=== PATIENT | female | born 1935 | race Caucasian/White ===

== ENCOUNTER 2020-08-03 07:16 | Outpatient (REF) | payer MEDICARE, SELFPAY ==
[2020-08-03 09:35] LABS: Glucose Urine UA NEG (NEG); Leukocyte Esterase Urine NEG (NEG); Nitrite Urine NEG (NEG); Urine Blood TRACE (NEG); Urine Ketones NEG (NEG); Urine Protein NEG (NEG-TRACE)
[2020-08-03 09:36] LABS: Appearance Urine CLEAR; Color Urine YELLOW
[2020-08-03 09:44] LABS: Squamous Epithelial Cell Urine 1+ /LPF; WBC Urine 0 /HPF (0-4)
== END 2020-08-03 07:17 | disposition home or self-care (01) ==
LOC: HO.LAB 07:16
PROVIDERS: Visit Provider Internal Medicine
DX: R35.1 Nocturia (principal)
CPT/HCPCS: 81001

== ENCOUNTER 2021-07-12 08:38 | Outpatient (REF) | payer MEDICARE, SELFPAY ==
--- NOTE | ~2021-07-12 | MM_ITS ---
EXAMINATION: BONE DENSITOMETRY CLINICAL INDICATION: Osteoporosis. COMPARISON: Previous BD dated 03/17/2018 and baseline BD dated 07/07/2008. TECHNIQUE: Using a [employer] DXA System (software version: 13.1) manufactured by [employer], dual-energy x-ray absorptiometry was performed of the lumbar spine and left hip. The images are of good technical quality. Summary results are attached. FINDINGS: AP SPINE L2-L3 (excluding L1 and L4): The data of L1-L4 has been changed to exclude the L1 and L4 vertebral bodies, because degenerative changes at these levels may cause overestimation of lumbar spine density. Current: BMD 1.219 g/cm2, Z-score 2.2, T-score 0.2, normal, 2.1% increase from previous, 7.1% increase from baseline (<5% change is not significant). Prior: BMD 1.194 g/cm2. Baseline: BMD 1.138 g/cm2. LEFT FEMUR, NECK: Current: BMD 0.355 g/cm2, Z-score -2.4, T-score -4.9, osteoporosis. Prior: BMD 0.675 g/cm2. Baseline: BMD 0.669 g/cm2. LEFT FEMUR, TOTAL: Current: BMD 0.410 g/cm2, Z-score -2.4, T-score -4.7, osteoporosis, 40.5% decrease from previous, 40.9% decrease from baseline (<5% change is not significant). Prior: BMD 0.689 g/cm2. Baseline: BMD 0.694 g/cm2. IDENTIFIED RISK FACTORS: Menopause, glucocorticoids (chronic), height loss, history of fracture (adult), hyperthyroid, low calcium intake, osteoporosis, secondary osteoporosis. HISTORY OF FRACTURE: Wrist, ankle. MEDICATIONS: Calcium, vitamin D, bisphosphonate. MM/XR DEXA axial skeleton IMPRESSION: 1. DIAGNOSIS: Osteoporosis based on the lowest T-score value of -4.9 in the femoral neck applying World Health Organization criteria. 2. 10-YEAR FRACTURE RISK PREDICTION, FRAX: Major osteoporotic fracture (clinical spine, forearm, hip or shoulder) 72.3%. Hip fracture 54.6%. 3. Treatment Recommendations: NOF guidelines recommend consideration for treatment in postmenopausal women and men age 50 and older presenting with the following: -A hip or vertebral (clinical or morphometric) fracture. -T-score less than or equal to -2.5 at the femoral neck or spine after appropriate evaluation to exclude secondary causes. -Low bone mass at the hip or spine and a 10-year fracture probability by FRAX of greater than or equal to 3% for hip fracture or greater than or equal to 20% for major osteoporotic fracture based on the [place] adapted WHO algorithm. 4. Other Recommendations: All treatment decisions require clinical judgment and consideration of individual patient factors, including patient preferences, comorbidities, previous drug use, risk factors not captured in the FRAX model (e.g. frailty, falls, vitamin D deficiency, increased bone turnover, interval significant decline in bone density) and possible under or overestimation of fracture risk by FRAX. Additional medical evaluation for secondary cause of low bone mineral density may be appropriate. FUTURE SCAN RECOMMENDATION: People with diagnosed cases of osteoporosis or at high risk for fracture should have regular bone mineral density tests. For patients eligible for Medicare, routine testing is allowed once every 2 years. The testing frequency can be increased to one year for patients who have rapidly progressing disease, those who are receiving or discontinuing medical therapy to restore bone mass, or have additional risk factors.
== END 2021-07-12 08:39 | disposition home or self-care (01) ==
LOC: HO.MAMMO 08:38
PROVIDERS: Visit Provider Internal Medicine
DX: M81.0 Age-related osteoporosis without current pathological fracture (principal); Z78.0 Asymptomatic menopausal state
CPT/HCPCS: 77080

== ENCOUNTER 2023-07-16 13:38 | Outpatient (REF) | payer MEDICARE, SELFPAY ==
--- NOTE | ~2023-07-16 | MM_ITS ---
EXAMINATION: BONE DENSITOMETRY CLINICAL INDICATION: Osteoporosis. COMPARISON: Previous BD dated 07/12/2021 and baseline BD dated 07/07/2008. TECHNIQUE: Using a [employer] DXA System (software version: 13.1) manufactured by [employer], dual-energy x-ray absorptiometry was performed of the lumbar spine and left hip. The images are of good technical quality. Summary results are attached. FINDINGS: AP SPINE L1-L2 (excluding L3 and L4): The data of L1-L4 has been changed to exclude the L3 and L4 vertebral bodies, because degenerative sclerosis at these levels may cause overestimation of lumbar spine density. Current: BMD 1.250 g/cm2, Z-score 2.9, T-score 0.7, normal, 0.2% decrease from previous, 16.4% increase from baseline (<5% change is not significant). Prior: BMD 1.252 g/cm2. Baseline: BMD 1.074 g/cm2. LEFT FEMUR, NECK: Current: BMD 0.705 g/cm2, Z-score 0.2, T-score -2.4, osteopenia. Prior: BMD 0.355 g/cm2. Baseline: BMD 0.669 g/cm2. LEFT FEMUR, TOTAL: Current: BMD 0.712 g/cm2, Z-score 0.2, T-score -2.3, osteopenia, 73.7% increase from previous, 2.6% increase from baseline (<5% change is not significant). Prior: BMD 0.410 g/cm2. Baseline: BMD 0.694 g/cm2. IDENTIFIED RISK FACTORS: Height loss. Menopause. HISTORY OF FRACTURE: Wrist, ankle. MEDICATIONS: Multiple multivitamin. Vitamin D. Prolia. Bisphosphonates. MM/XR DEXA axial skeleton IMPRESSION: 1. DIAGNOSIS: Osteopenia based on the lowest T-score value of -2.4 in the femoral neck applying World Health Organization criteria. 2. 10-YEAR FRACTURE RISK PREDICTION, FRAX: Not performed in this patient on estrogen or bone building treatments. 3. Treatment Recommendations: NOF guidelines recommend consideration for treatment in postmenopausal women and men age 50 and older presenting with the following: -A hip or vertebral (clinical or morphometric) fracture. -T-score less than or equal to -2.5 at the femoral neck or spine after appropriate evaluation to exclude secondary causes. -Low bone mass at the hip or spine and a 10-year fracture probability by FRAX of greater than or equal to 3% for hip fracture or greater than or equal to 20% for major osteoporotic fracture based on the [place] adapted WHO algorithm. 4. Other Recommendations: All treatment decisions require clinical judgment and consideration of individual patient factors, including patient preferences, comorbidities, previous drug use, risk factors not captured in the FRAX model (e.g. frailty, falls, vitamin D deficiency, increased bone turnover, interval significant decline in bone density) and possible under or overestimation of fracture risk by FRAX. Additional medical evaluation for secondary cause of low bone mineral density may be appropriate. FUTURE SCAN RECOMMENDATION: People with diagnosed cases of osteoporosis or at high risk for fracture should have regular bone mineral density tests. For patients eligible for Medicare, routine testing is allowed once every 2 years. The testing frequency can be increased to one year for patients who have rapidly progressing disease, those who are receiving or discontinuing medical therapy to restore bone mass, or have additional risk factors.
== END 2023-07-16 13:39 | disposition home or self-care (01) ==
LOC: HO.MAMMO 13:38
PROVIDERS: PCP Internal Medicine; Visit Provider Internal Medicine
DX: Z13.820 Encounter for screening for osteoporosis (principal); M81.8 Other osteoporosis without current pathological fracture; R87.1 Abnormal level of hormones in specimens from female genital organs; Z78.0 Asymptomatic menopausal state
CPT/HCPCS: 77080

== ENCOUNTER 2025-09-06 13:21 | Outpatient (REF) | payer MEDICARE, SELFPAY ==
--- NOTE | ~2025-09-06 | MM_ITS ---
EXAMINATION: DXA BONE DENSITY AXIAL HISTORY: M81.0 TECHNIQUE: Moya Okruga Dual energy absorptiometry (DEXA) of the lumbar spine, total left hip, and femoral neck was performed. COMPARISON: Comparison is made with the prior examination most recent dated June 2023. FINDINGS: The bone mineral density of the lumbar spine (L1-L3) is 1.419 g/cm2, corresponding to a T-score of 2.1, and a Z-score of 4.3. This is indicative of normal bone mineral density. This represents a BMD change of 6.5% compared to the prior exam. The bone mineral density of the left total femur is 0.7-0 g/cm2, corresponding to a T-score of -2.3, and a Z-score of 0.4. This is indicative of osteopenia. This represents a BMD change of 1.1% compared to the prior exam. The bone mineral density of the left femoral neck is 0.737 g/cm2, corresponding to a T-score of -2.2, and a Z-score of 0.6. This is indicative of osteopenia. This represents a BMD change of 4.5% compared to the prior exam. MM/XR DEXA axial skeleton IMPRESSION: Based on bone mineral density, and according to World Health Organization (WHO) criteria, the diagnosis is consistent with osteopenia based on lowest T score of -2.3 in the left total femur. Treatment Recommendations: NOF guidelines recommend consideration for treatment in postmenopausal women and men age 50 and older presenting with the following: -A hip or vertebral (clinical or morphometric) fracture. -T-score less than or equal to -2.5 at the femoral neck or spine after appropriate evaluation to exclude secondary causes. -Low bone mass at the hip or spine and a 10-year fracture probability by FRAX of greater than or equal to 3% for hip fracture or greater than or equal to 20% for major osteoporotic fracture based on the [place] adapted WHO algorithm. Other Recommendations: All treatment decisions require clinical judgment and consideration of individual patient factors, including patient preferences, comorbidities, previous drug use, risk factors not captured in the FRAX model (e.g. frailty, falls, vitamin D deficiency, increased bone turnover, interval significant decline in bone density) and possible under or overestimation of fracture risk by FRAX. Additional medical evaluation for secondary cause of low bone mineral density may be appropriate. FUTURE SCAN RECOMMENDATION: People with diagnosed cases of osteoporosis or at high risk for fracture should have regular bone mineral density tests. For patients eligible for Medicare, routine testing is allowed once every 2 years. The testing frequency can be increased to one year for patients who have rapidly progressing disease, those who are receiving or discontinuing medical therapy to restore bone mass, or have additional risk factors. Statistically, 68% of repeat scans fall within 1 SD (+/- 0.010 g/cm2 for AP spine L1-L4) and 1 SD (+/- 0.012 g/cm2 for femur total) FRAX is a trademark of the [employer] [place] [employer], a World Health Organization (WHO) Collaborating Center. Electronically signed by: China Forbes MD 09/06/2025 02:14 PM RENEE
--- OUTSIDE RECORDS SUMMARY | 2025-09-06 18:39 | XMS_ITS | Patient Health Record ---
Author Organization [facility] Address [address] [place] [id number] Care Team Providers Care Maitre D' Name Role Phone Fawad Hutton MD Primary Care Provider Ismael Comer Unavailable [phone] Allergies Allergen (clinical drug ingredient) Drug/Non Drug Allergy documented on EMR Reaction Allergy Type Onset Date Status erythromycin Erythromycin Unknown Drug Allergy A ctive Reason For Referral No Information Medications Medication SIG (Take, Route, Frequency, Duration) Notes Start Date End Date Status MoviPrep 100 GM Solution Reconstituted as directed Orally 09/13/2011 Active Lisinopril 20mg Ac tive Claritin Active Vitamin B Complex-C Active Excedrin Migraine Ac tive Motrin Active Vitamin E Active Social History Section Notes: She stopped smoking many yea rs ago, and does not use any significant amounts of alcohol Problems Problem Type SNOMED Code ICD Code Onset Dates Problem Status W/U Status Risk Notes Problem Constipation (66461501) Unspecified constipation (564.00) Active confirmed Problem Family history of malignant neoplasm of gastrointestinal tract (907911574) Family history of malignant neoplasm of gastrointestinal tract (V16.0) Active confirmed Problem Screening for malignant neoplasm of colon (388877686) Special screening for malignant neoplasms, colon (V76.51) Active confirmed Plan Of Treatment Future Test Test Name Order Date COLONOSCOPY 09/13/2011 Insurance Providers Payer Name Payer Address Payer Phone Subscriber Number Group Number Insured Name Patient Relationship to Insured Coverage Start Date Coverage End Date [facility] [address] [place], [place] [phone] [id number] LINDA REED Self - patient is the insured Medical (General) History Medical History History ICD Code hypertension Denies [place],DM,CVA,Lung disease,renal dise ase
--- OUTSIDE RECORDS SUMMARY | 2025-09-06 18:39 | XMS_ITS | Encounter Summary ---
Author Organization [facility] Address [address] [place] [phone] Phone Care Team Providers Care Ehr Trainer Name Role Phone Fawad Hutton MD Primary Care Provider [phone] Bernard Braga MD Unavailable [phone] Nik Hunt DO Unavailable Reason for Visit * Reason Comments Medication Refill Encounter Details Date Type Department Care Team (Late st Contact Info) Description 08/31/2025 Refill [facility] [address] [place], [place] [phone] Fawad Hutton MD [address] [place] [address] [email or web address] Medication Refill Social History Tobacco Use Types Packs/Day Years Used Date Smoking Tobacco: Former Cigarettes 0.5 31 1 605 - 7189 Smokeless Tobacco: Never Alcohol Use Standard Drinks/Week Comments No 0 (1 standard drink = 0.6 oz pur e alcohol) Education Answer Date Recorded Are you interested in more education? Not on rossana e 01/24/2023 Are you concerned about learning? Not on file 01/24/2023 No 01/24/2023 No 01/24/2023 Digital Access Answer Date Recorded No 02/24/2023 No 02/24/2023 Reliable internet access at home? Not on file 02/24/2023 Device with a working camera? Not on file Intimate Partner Violence Answer Date R ecorded Denied Basic Needs Not on file 07/25/2025 In the past 12 months have y ou been in a relationship with a person who hurts, threatens, or tries to control you? No 07/25/2025 Worried food would run out Not on file 07/25 In the past 12 months have y ou been in a relationship with a person who hurts, threatens, or tries to control you? No 07/25/2025 Comments No Sex and Gender Information Value Date Recorded Sex Assigned at Female 02/07/2022 11:27 PM EDT Legal Sex Female 10:14 PM EDT Gender Identity Female 02/07/2022 11:27 PM EDT Sexual Orientation Straight 02/07/2022 11 :27 PM EDT documented as of this encounter Progress Notes * Paige Cottrell CMA - 09/01/2025 7:34 AM EST Rx Care Gap Status - Instructions for Clinical Staff (prescriber discretion applies): > Mismatch review guide > N/a - No action needed Visit Info Last visit: 07/25/2025 Fawad Hutton MD - Internal Medicine [facility] > Requested f/u: Return in about 6 months (around 01/23/2026). Upcoming visit: 01/23/2026 Fawad Hutton MD - Internal Medicine [facility] ACTIONS TAKEN BY Paige Cottrell CMA - Updated rx duration per protocol. CCB (vasodilators) Rx Protocol (on HTN Registry) - amlodipine besylate Criteria met; renew for up to 12 months. Visit in the past 14 months: Yes Clinical criteria: - BP within last 6 months: 138/80 on 07/25/2025 documented in this encounter Plan of Treatment Upcoming Encounters Date Type Department Care Team (Late st Contact Info) Description 01/04/2026 10:00 AM EDT Nurse Only [facility] [address] [place] [address] [place] [id number] Nik Hunt DO [address] [place] [address] 01/23/2026 9:00 AM EDT Office Visit [facility] [address] [place], [place] [phone] Fawad Hutton MD [address], [place] [phone] 07/13/2026 8:30 AM EDT Office Visit [facility] [address] [place] [address] Nik Hunt DO [address] [place] [address] documented as of this encounter Visit Diagnoses Diagnosis Benign essential hypertension Essential hypertension, benign documented in this encounter Additional Health Concerns Assessment Noted Time PHQ-2 Depression Total Score: 0 07/25/20 25 1:05 PM EDT documented as of this encounter Care Teams Ehr Trainer Relationship Specialty Start Date End Date Fawad Hutton MD [address] [place] [phone] PCP - General 07/14/17 Bernard Braga MD [address] [place] [address] [place] [id number] Ophthalmology 11/26/19 Nik Hunt DO [address] [place] [id number] Endocrinology 11/26/19 documented as of this encounter Additional Source Comments The information contained in this document represents components of the legal health record. It is not the complete legal health record.[facility]
--- OUTSIDE RECORDS SUMMARY | 2025-09-06 18:39 | XMS_ITS | Clinical Summary ---
Author Organization [facility] Address [address] [facility] [address] [place] [address] Phone Care Team Providers Care Metal Cut Off Saw Tender Name Role Phone Fawad Hutton MD Primary Care Provider [phone] Bernard Braga MD Unavailable Nik Hunt DO Unavailable Allergies Active Allergy Reactions Criticality Noted Date Comments Erythromycin Rash Low 09/23/2017 Medications IBUPROFEN (MOTRIN ORAL) Take 200 mg by mouth 2 (two) times a day as needed. Infrequent less than every 2 weeks Active cyanocobalamin 100 MCG tablet Take 100 mcg by mouth daily. Active ascorbic acid, vitamin C, 100 mg Chew Take 1 tablet by mouth daily. Active cholecalciferol (VITAMIN D3) 5,000 unit capsule Take 5,000 Units by mouth 2 (two) times a week. Active multivitamin-min erals-lutein (CENTRUM SILVER) Tab Take 1 tablet by mouth daily. With vitamin D3 1000 units Active vitamin E acetate (VITAMIN E ORAL) Take 1 capsule by mouth daily. Active folic acid (FOLVITE) 1 MG tablet Take 1 mg by mouth daily. Active CALCIUM ORAL Take 2 tablets by mouth daily. Active omeprazole (PRILOSEC) 20 MG capsuleIndicatio ns:Gastroesophag eal reflux disease TAKE 1 CAPSULE BY MOUTH DAILY NEEDED 100 capsule 2 05/02/20 25 Active methIMAzole (TAPAZOLE) 5 MG tabletIndication s:Graves disease TAKE ONE-HALF TABLET BY MOUTH DAILY 50 tablet 1 05/31/20 25 Active naproxen (NAPROSYN) 500 MG tablet Take 500 mg by mouth 2 (two) times a day with meals. Active acetaminophen (TYLENOL) 500 MG tablet Take 750 mg by mouth 3 (three) times a day. Active lisinopril (PRINIVIL,ZESTRI L) 20 MG tabletIndication s:Hypertension TAKE 1 TABLET BY MOUTH DAILY 60 tablet 3 08/01/20 25 Active amLODIPine (NORVASC) 2.5 MG tabletIndication s:Benign essential hypertension TAKE 1 TABLET BY MOUTH DAILY 90 tablet 3 09/01/20 25 Active amLODIPine (NORVASC) 2.5 MG tabletIndication s:Benign essential hypertension TAKE 1 TABLET BY MOUTH DAILY 100 tablet 2 12/15/19 25 025 Discontinued Active Problems Problem Noted Date Diagnosed Date Graves disease 12/03/2019 Assessment & Plan (07/05/2025 8:55 AM EDT): Chemically and clinically euthyroid continue amiodarone 2.5 mg daily. Repeat thyroid function studies in a year. Assessment & Plan (07/05/2024 8:57 AM EDT): Chemically and clinically euthyroid on methimazole 2.5 mg continue current regimen. Assessment & Plan (07/01/2023 12:59 PM EDT): Chemically and clinically euthyroid continue methimazole 2.5 mg daily repeat thyroid function studies in 1 year. Assessment & Plan (06/28/2022 11:50 AM EDT): Chemically and clinically euthyroid on methimazole 2.5 mg continue this regimen no changes repeat thyroid function studies in 6 months. Assessment & Plan (02/05/2022 12:23 PM EDT): She continues methimazole 2.5 mg she did the lab work early is in the reference range. At this point she does have an appointment for Graves' disease on March 15, 2022 so maybe we can use that for osteoporosis and Graves' management. Hopefully by then she will have a prior authorization for her other medical condition. Assessment & Plan (09/14/2021 8:57 AM EST): Chemically and clinically euthyroid continue current dose of methimazole. She will repeat thyroid function studies in 6 months. Returns for follow-up then. Assessment & Plan (03/16/2021 10:58 AM EDT): The patient is chemically and clinically euthyroid on methimazole 2.5 mg. I informed her that even if her TSH goes up to 7 this is completely fine. But is not 5 for the TSH to be suppressed. So at this point I do want to continue monitoring her more frequently so I asked him to return for follow-up in 6 months. She should do the lab work prior to the follow-up visit. Assessment & Plan (09/15/2020 10:40 AM EST): Patient is chemically and clinically euthyroid on methimazole 2.5 mcg we will continue the current dose. Repeat thyroid function studies in 6 months time. If she continues to do well in 6 months then we can see her on a yearly basis. Assessment & Plan (06/15/2020 9:42 AM EDT): The patient is in a subclinical hypothyroid state with methimazole 2.5 mg daily but she feels fine. Because LINA guidelines state that patients in her age range can have a TSH of 2607M IUs/mL we can continue the current dose of methimazole 2.5 mg daily. She will repeat thyroid function studies in 3 months time. If she continues to have elevated TSH especially above 7M IUs/mL or if she starts feeling tired then I will decrease the dose of methimazole to 2.5 mg every other day. She has enough medications for another 90 days or 3 months so I will not renew the medications prior to her follow-up visit in order to determine if we need to adjust the medications. Assessment & Plan (12/03/2019 8:44 AM EST): She is chemically and clinically euthyroid on methimazole 2.5 mg daily will renew methimazole. She will repeat thyroid function studies in 6 months. Assuming she continues to do well we will see her on a yearly basis. Allergic rhinitis due to allergen 09/23/2017 Hypertension 09/23/2017 Hyperlipidemia 09/23/2017 Nocturia 09/23/2017 Osteoporosis 09/23/2017 Assessment & Plan (07/05/2025 8:53 AM EDT): She is taking calcium supplement and vitamin D. She is not doing any weightbearing exercise presently. She is due for repeat DXA scan on 07/16/2025, this was requested. She presents today for her seventh Prolia injection. She should repeat lab work in 6 months prior to her follow-up visit with the nurse and again in a year's time prior to her follow-up with me. Assessment & Plan (07/05/2024 9:05 AM EDT): She continues to take calcium and vitamin D supplements. Her vitamin D levels were high but she has already decreased vitamin D intake. She was advised to calculate vitamin D administration for the record. She had a tremendous improvement in bone mineral density in the hip 73.7%. The spine increased by 16.4 from baseline. So Prolia is really working for her. Today she presents for fifth Prolia injection. She will follow with the nurse in 6 months and she she will have a renal panel prior to that visit. She will follow with me in 1 year and she will have a renal panel and CTX level that must be done fasting. Assessment & Plan (07/01/2023 12:57 PM EDT): The patient continues on calcium and vitamin D supplements. She is due for repeat DXA scan on 07/12/2023. This has been requested by her primary care physician. The patient should contact the radiology department to schedule the study. In the meantime she continues on Prolia which she is tolerating today she received her third Prolia injection. She will return for follow-up with the nurse in 6 months and again with me in 1 year. She should repeat basic metabolic panel in 6 months and again in 1 year. Assessment & Plan (06/28/2022 11:51 AM EDT): The patient is on calcium and vitamin D supplements today she received her first Prolia injection. She will repeat her basic panel and return for follow-up in 6 months. Assessment & Plan (02/05/2022 12:20 PM EDT): This is a patient with multiple risk factors for osteoporosis as indicated in the history of present illness. She was placed on Fosamax for 5 years but then discontinue after she used it for this period of time. She stopped using 2020. I do recommend continue use with antiresorptive medications and I recommended Prolia administration. She is going to require prior authorization to use this medication. I sent my medical psychotherapist a message to obtain this prior authorization. In the meantime she will continue on calcium and vitamin D supplements. As for the 24- hour urine calcium it was low at 96 mg per 24 hours but based on her dietary intake she is getting 1251 mg of calcium on a daily basis +600 mg of calcium supplements which she is actually over the quantity that is required she should be getting up to 1500 mg a day. So it is unclear why the 24-hour urine calcium was low especially since the patient states she did collect a full 24 hours. I will now work it up further. I will proceed with Prolia ministration once prior authorization has been approved. She is not due for repeat DXA scan on till 07/12/2023. She has a follow-up appointment for Graves' disease on March 15, 2022 and I can manage both conditions at the same time. Assessment & Plan (11/14/2021 10:41 AM EST): This is a patient with osteoporosis unclear when she developed osteopenia or osteoporosis because I do not have the reports. She had osteoporosis since 2018 confirmed by DXA scan. Her risk factors for osteoporosis include age, menopause, remote tobacco use, and use of proton pump inhibitors for 7 to 8 years. She has had multiple fractures at least 1 fragility fracture. She has lost 3 inches in height. She was treated with alendronate for 5 years. Currently is on calcium and vitamin D supplements. She did have improvement in her bone mineral density in 2020 compared to 2018 while on alendronate. She believes her alendronate was discontinued approximately a year ago. I believe that she should continue on antiresorptive medications since stopping her alendronate can result in worsening bone mineral density. I suggest that she try Prolia subcutaneous injections every 6 months. I gave the patient information on Prolia at this is patient information so is simple to read it discusses although possible adverse effects and how the medication works. At this point I do not need to do any further work-up for osteoporosis other than a 24- hour urine calcium study. I asked her to please bring in her calcium supplements so I can review them on the follow-up visit. She can come in within 2 months time. At this moment there is no urgency. Thyroid nodule 09/23/2017 Osteoarthritis of multiple joints 09/23/2017 Gastroesophageal reflux disease Encounters Date Type Department Care Team Description 08/31/2025 Refill [facility] [address] [place] [address] Fawad Hutton MD Medication Refill 07/30/2025 Refill [facility] [address] [place] [address] Davian Larson MD Medication Refill 07/25/2025 1:00 PM EDT Office Visit [facility] [address] [place] [address] Fawad Hutton MD Routine general medical examination at a health care facility (Primary Dx); Skin lesion of face; Hypertension, unspecified type; Graves disease; Pure hypercholesterolemia ; Age-related osteoporosis without current pathological fracture; Gastroesophageal reflux disease, unspecified whether esophagitis present; Type 2 diabetes mellitus with hyperglycemia, without long-term current use of insulin; Left hip pain; Chronic pain of left knee 07/05/2025 8:30 AM EDT Office Visit [facility] [address] [place] [address] [place] [address] Nik Hunt DO Age-related osteoporosis without current pathological fracture (Primary Dx); Graves disease 06/23/2025 8:29 AM EDT - 06/23/2025 11:59 PM EDT Hospital Encounter [facility] [place] [place] [address] Nik Hunt DO Discharge Disposition: Home or Self Care from Last 3 Months Immunizations Immunization Administration Dates Next Due COVID-19 (Pre-07/21) Pfizer Vaccine, mRNA, PF 11/22/2020,11/01/2020 INFLUENZA, SPLIT VIRUS, TRIVALENT PF 06/14/2015 INFLUENZA, SPLIT VIRUS, TRIV ALENT W/ PRESERVATIVE IM 06/21/2014,06/08/2013,08/06/2012 Influenza High-Dose Quadriva lent Preservative Free IM 06/30/2022,06/13/2021,06/15/2020 Influenza High-Dose Trivalen t Preservative Free IM 06/15/2025,06/23/2024,06/05/2022,06/09,08/01/2018,06/10/2017,06/13/2016 Influenza Quadrivalent Adjuv anted Preservative Free IM 06/25/2023 Influenza, Unspecified Formulation 08/02/2018, PPD Test 01/30/2012 Pneumococcal conjugate PCV13 09/23/2017 Pneumococcal polysaccharide PPSV23 01/29/2006 RSV Vaccine (monovalent, adjuvanted) 07/19/2024 Td (adult) 5 Lf Tetanus Toxo id, PF, Adsorbed 07/30/2005 Zoster live 02/20/2017,12/30/2016 Family History Medical History Relation Comments Alzheimer's disease Brother 1 MIKAEL disease Brother 2 Hypertension Brother 2 Hypertension Daughter 1 Thyroid disease Daughter 2 Depression Daughter 3 Heart disease Father Cancer Mother Hypertension Son 1 Diabetes Son 2 Relation Status Comments Brother 1 Brother 2 Alive Daughter 1 Alive Daughter 2 Alive Daughter 3 Alive Father Mother Son 1 Alive Son 2 Alive Social History Tobacco Use Types Packs/Day Years Used Date Smoking Tobacco: Former Cigarettes 0.5 31 1 315 - 2535 Smokeless Tobacco: Never Tobacco Cessation:Counseling Given: Not Answered Alcohol Use Standard Drinks/Week Comments No 0 [...] Orientation Straight 02/07/2022 11 :27 PM EDT Last Filed Vital Signs Vital Sign Reading Time Taken Comments Blood Pressure 138/80 07/25/2025 1:42 PM EDT Pulse 69 07/25/2025 12:55 PM EDT Temperature 37.1 C (98.7 F) 07/25/2025 12:55 PM EDT Respiratory Rate 16 01/10/2025 9:31 AM EDT Oxygen Saturation 97% 07/25/2025 12:55 PM EDT Inhaled Oxygen Concentration - - Weight 56.7 kg (125 lb) 07/25/2025 12:55 PM EDT Height 153.8 cm (5' 0.55 ) 07/25/2025 12:55 PM E DT Body Mass Index 23.97 07/25/2025 12:55 PM EDT Plan of Treatment Upcoming Encounters Date Type Department Care Team (Late st Contact Info) Description 01/04/2026 10:00 AM EDT Nurse Only [facility] [address] [place] [id number] Nik Hunt DO [address] [place] [address] 01/23/2026 9:00 AM EDT Office Visit [facility] [address] [place] [address] Fawad Hutton MD [address] [place] [address] 07/13/2026 8:30 AM EDT Office Visit [facility] [address] [place] [address] [place] [address] Nik Hunt DO [address] [place] [address] [email or web address] Health Maintenance Due Date Last Done Comments Adult Td,Tdap Booster 07/30/2015 07/30/2005 ZOSTER VACCINES (2 of 3) 04/17/2017 02/20/2017, 04/0 11/2016 COVID-19 VACCINE (2024- season) 2025 06/15/2025, 07/14/2023, 06/17/2022, Additional history exists CREATININE LEVEL 06/23/2026 06/23/2025, 10/2024, 06/21/2024, Additional history exists POTASSIUM LEVEL 06/23/2026 06/23/2025, 040 10/2024, 06/21/2024, Additional history exists DEPRESSION SCREENING 07/25/2026 07/25/2025 PNEUMOCOCCAL VACCINES (50+ years) Completed 09/23/2017, 01/29/2006 RSV VACCINE Completed 07/19/2024 INFLUENZA VACCINE Completed 06/15/2025, , 06/25/2023, Additional history exists OSTEOPOROSIS SCREENING INITIAL (ONE-TIME) Completed 07/05/2025, 07/17/2023, 07/12/2021, Additional history exists HEPATITIS A VACCINES Aged Out No long er eligible based on patient's age to complete this topic HIB VACCINES Aged Out No longer eligi ble based on patient's age to complete this topic MENINGOCOCCAL VACCINES (ACWY) Aged Out No longer eligible based on patient's age to complete this topic MENINGOCOCCAL VACCINES (B) Aged Out N o longer eligible based on patient's age to complete this topic Medical Devices Not on file Procedures Procedure Name Priority Date/Time Associated Diagnosis Comments BD DXA MONITORING Routine 07/05/2025 8:4 6 AM EDT Age-related osteoporosis without current pathological fracture URINE SEDIMENT Routine 06/23/2025 8:50 AM EDT URINALYSIS WITH REFLEX TO URINE CULTURE Routine 06/23/2025 8:50 AM EDT Dysuria PHOSPHORUS Routine 06/23/2025 8:39 AM EDT COMPREHENSIVE METABOLIC PANEL (CMP) Routine 06/23/2025 8:39 AM EDT Hypertension, unspecified type CBC AND DIFFERENTIAL Routine 06/23/2025 8:39 AM EDT Hypertension, unspecified type HEMOGLOBIN A1C Routine 06/23/2025 8:39 AM EDT Impaired fasting glucose VITAMIN B12 Routine 06/23/2025 8:39 AM EDT Numbness and tingling of foot THYROID STIMULATING HORMONE (TSH) Routine 06/23/2025 8:39 AM EDT Graves disease FREE T4 Routine 06/23/2025 8:39 AM EDT Graves disease COLLAGEN TYPE 1B-TELOPEPTIDE, BLOOD Routine 06/23/2025 8:39 AM EDT Age-related osteoporosis without current pathological fracture from Last 3 Months Results * (ABNORMAL) Urinalysis w/reflex Urine Culture (06/23/2025 8:50 AM EDT) COLOR Yellow Yellow [facility] CLARITY Clear [facility] GLUCOSE Negative Negative [facility] BILI Negative Negative [facility] KETONES Negative Negative [facility] SPECIFIC GRAVITY 1.015 1.005 - 1.030 [facility] BLOOD Negative Negative [facility] PH 6.5 5.0 - 8.0 [facility] Protein-UA Negative Negative [facility] NITRITE Negative Negative [facility] Leukocyte esterase, ur Trace(A) Negative [facility] Urine (Urine) 06/23/2025 8:5 0 AM EDT 06/23/2025 8:53 AM EDT Fawad Hutton MD LAB URINE ORDERABLES Final Re sult Performing Organization Address [facility] Co de Phone Number [address] [address] * (ABNORMAL) Urine sediment (06/23/2025 8:50 AM EDT) WBC 0-4(A) NONE SEEN /hpf [facility] RBC NONE SEEN NONE SEEN /hpf [facility] URINE EPITHELIAL 0-4(A) NONE SEEN [facility] MUCUS Trace(A) NONE SEEN /hpf [facility] BACTERIA Trace(A) NONE SEEN /hpf [facility] 06/23/2025 8:50 AM EDT 06/23/2025 8:53 AM EDT Fawad Hutton MD LAB URINE ORDERABLES Final Re sult Performing Organization Address [facility] Co de Phone Number [address] [address] * (ABNORMAL) Collagen type 1b-telopeptide, blood (06/23/2025 8:39 AM EDT) Collagen CTx 117(L) pg/mL [facility] Comment: (NOTE) REFERENCE VALUE [phone] (18-29 y) 150-635 (30-39 y) 131-670 (40-49 y) [phone] (50-59 y) 171-970 (60-69 y) 152-858 (>70 y) 136-689 (Premenopausal) [phone] (Postmenopausal) Flagging is based on the age-specific reference interval and not menopausal status. Blood 06/23/2025 8:39 AM EDT 06/23/2025 8:46 AM EDT us Nik Ruedakeshav HASSAN LAB BLOOD BKR ORDERABLES Final R esult [facility] [address] [place] [address] * (ABNORMAL) Comprehensive metabolic panel (06/23/2025 8:39 AM EDT) SODIUM 143 133 - 146 mmol/L [facility] POTASSIUM 4.0 3.3 - 5.1 mmol/L [facility] CHLORIDE 106 96 - 108 mmol/L [facility] CO2 23 21 - 35 mmol/L [facility] BUN 20(H) 6 - 19 mg/dL [facility] CREATININE 0.60 0.5 - 1.5 mg/dL [facility] GLUCOSE 128(H) 70 - 99 mg/dL [facility] ALBUMIN 4.5 3.9 - 4.8 g/dL [facility] TOTAL PROTEIN 7.2 6.5 - 8.0 g/dL [facility] CALCIUM 9.2 8.4 - 10.3 mg/dL [facility] ALKALINE PHOSPHATASE 56 39 - 117 U/L [facility] TOTAL BILIRUBIN 0.6 0.0 - 1.2 mg/dL [facility] AST 18 0 - 37 U/L [facility] ALT 13 0 - 40 U/L [facility] GLOBULIN 2.7 1 - 4.8 g/dL [facility] EGFR 86 >59 mL/min/1.7 3m2 [facility] Comment:Estimated glomerular filtration rate calculated using the CKD-EPI refit equation. ANION GAP 18 10 - 20 mmol/L [facility] Blood 06/23/2025 8:39 AM EDT 06/23/2025 8:46 AM EDT us Fawad Hutton MD LAB BLOOD BKR ORDERABLES Razia larios Result [facility] [address] [place] [address] * CBC and differential (06/23/2025 8:39 AM EDT) WBC 6.75 4.00 - 11.00 K/uL [facility] RBC 4.86 4.00 - 5.20 M/uL [facility] HGB 14.7 12.0 - 16.0 g/dL [facility] HCT 45.3 36.0 - 46.0 % [facility] PLT 320 150 - 450 K/uL [facility] MCV 93.2 80.0 - 100.0 fL [facility] MCH 30.2 27.0 - 31.0 pg [facility] MCHC 32.5 32.0 - 36.0 g/dL [facility] RDW 13.1 11.5 - 14.5 % [facility] MPV 11.4 8.4 - 12.0 fL [facility] NRBC 0.00 0.00 /100 WBCs [facility] ABSOLUTE NRBC 0.00 0.00 K/uL [facility] DIFF METHOD Auto [facility] NEUTS 55.8 48.0 - 76.0 % [facility] LYMPHS 32.9 18.0 - 41.0 % [facility] MONOS 8.4 4.0 - 11.0 % [facility] EOS 2.1 0.0 - 5.0 % [facility] BASOS 0.4 0.0 - 1.5 % [facility] Granulocytes, immature (%) 0.4 0.0 - 0.9 % [facility] ABSOLUTE NEUTS 3.76 1.92 - 7.60 K/uL [facility] ABSOLUTE LYMPHS 2.22 0.72 - 4.10 K/uL [facility] ABSOLUTE MONOS 0.57 0.16 - 1.10 K/uL [facility] ABSOLUTE EOS 0.14 0.00 - 0.50 K/uL [facility] ABSOLUTE BASOS 0.03 0.00 - 0.15 K/uL [facility] Granulocytes, immature 0.03 0.00 - 0.09 K/uL [facility] Blood 06/23/2025 8:39 AM EDT 06/23/2025 8:46 AM EDT us Fawad Hutton MD LAB BLOOD BKR ORDERABLES Razia larios Result [address] [address] * TSH (06/23/2025 8:39 AM EDT) TSH 3.70 0.27 - 4.20 uIU/mL [facility] Blood 06/23/2025 8:39 AM EDT 06/23/2025 8:46 AM EDT [facility] BLOOD BKR ORDERABLES Final R esult Performing Organization Address City/[facility]/ZIP Co de Phone Number [address] [address] * Free T4 (06/23/2025 8:39 AM EDT) FREE T4 1.3 0.9 - 1.7 ng/dL [facility] Blood 06/23/2025 8:39 AM EDT 06/23/2025 8:46 AM EDT [facility] BKR ORDERABLES Final R esult Performing Organization Address City/[facility]/ZIP Co de Phone Number [address] [address] * Phosphorus (06/23/2025 8:39 AM EDT) PHOSPHORUS 3.2 2.7 - 4.5 mg/dL [facility] 06/23/2025 8:39 AM EDT 06/23/2025 8:46 AM EDT [facility] BLO[facility] BKR ORDERABLES Final R esult Performing Organization Address City/[facility]/ZIP Co de Phone Number [address] [address] * (ABNORMAL) Hemoglobin A1c (06/23/2025 8:39 AM EDT) HEMOGLOBIN A1C 6.2(H) 4.3 - 5.8 % [facility] Blood 06/23/2025 8:39 AM EDT 06/23/2025 8:47 AM EDT Fawad Hutton MD LAB BLOOD BKR ORDERABLES Razia l Result Performing Organization Address City/[facility]/ZIP Co de Phone Number [address] [address] * (ABNORMAL) Vitamin B12 (06/23/2025 8:39 AM EDT) VITAMIN B12 >2000(H) 232 - 1245 pg/mL [facility] Blood 06/23/2025 8:39 AM EDT 06/23/2025 8:46 AM EDT Fawad Hutton MD LAB BLOOD BKR ORDERABLES Razia l Result Performing Organization Address City/[facility] Co de Phone Number [address] [address] * DXA Monitoring (07/17/2023 11:00 AM EDT) Anatomical Region Laterality Modality Bone Density Bone Density Fawad Hutton MD IMG BD BONE DENSITY DEXA Razia l Result from Last 3 Months or Most Recently Relevant to Health Maintenance Insurance [facility] MEDICARE REPLACEMENT HEALTH SAFETY NET FULL [facility] MEDICARE [place] [address] [place] [address] [facility] MEDICARE REPLACEMENT MEDICARE REPLACEMENT MEDICARE REPLACEMENT HEALTH SAFETY [place] [address] [place] [address] MEDICARE REPLACEMENT MEDICARE RE[place] [address] [place] [address] MEDICARE REPLACEMENT [employer] SAF[place] [address] [place] [address] MEDICARE REPLACEMENT HEALTH SAFETY NET FULL Advance Directives For more information, please contact: [phone] (9AM - 5PM [place], Friday-Friday) Documents on File Type Date Recorded Patient Choral Director Expl anation Healthcare Proxy 01/10/2025 [facility] Proxy From scan 01/10/2025 Care Teams Metal Cut Off Saw Tender Relationship Specialty Start Date End Date Fawad Hutton MD [address] [place] [id number] PCP - General 07/14/17 Bernard Braga MD [address] [place] [address] [place] [address] Ophthalmology 11/26/19 Nik Hunt DO [address] [place] [phone] [email or web address] Endocrinology 11/26/19 Additional Source Comments The information contained in this document represents components of the legal health record. It is not the complete legal health record.[facility]
--- OUTSIDE RECORDS SUMMARY | 2025-09-06 18:40 | XMS_ITS | Encounter Summary ---
Author Organization [facility] Address [address] [facility] [address] [place] [phone] Phone Care Team Providers Care Mechanical Insulator Name Role Phone Fawad Hutton MD Primary Care Provider [phone] Bernard Braga MD Unavailable Nik Hunt DO Unavailable Reason for Visit * Reason Comments Medication Refill Encounter Details Date Type Department Care Team (Late st Contact Info) Description 07/30/2025 Refill [facility] [place] [facility] [address], [place] [id number] Davian Larson MD [address] [place] [address] [email or web address] Medication Refill Social History Tobacco Use Types Packs/Day Years Used Date Smoking Tobacco: Former Cigarettes 0.5 31 1 955 - 1986 Smokeless Tobacco: Never Alcohol Use Standard Drinks/Week [...] as of this encounter Progress Notes * Jason Willingham MA - 08/01/2025 8:15 AM EST Rx Care Gap Status - Instructions for Clinical Staff (prescriber discretion applies): > Mismatch review guide > N/a - No action needed Visit Info Last visit: 07/25/2025 Fawad Hutton MD - Internal Medicine [facility] > Requested f/u: Return in about 6 months (around 01/23/2026). Upcoming visit: 01/23/2026 Fawad Hutton MD - [facility] ACTIONS TAKEN BY Jason Willingham MA - Criteria met. ACEi / ARBs / Diuretic Rx Protocol (on HTN Registry) - lisinopril Criteria met; renew for up to 12 months. Visit in the past 14 months: Yes Clinical criteria: - BP within last 6 months: 138/80 on 07/25/2025 - BMP within past year: Yes - Cr, GFR and K are normal: Yes Lab Results Component Value Date SODIUM 143 06/23/2025 POTASSIUM 4.0 06/23/2025 CHLORIDE 106 06/23/2025 CO2 23 06/23/2025 BUN 20 (H) 06/23/2025 CREATININE 0.60 06/23/2025 EGFR 86 06/23/2025 documented in this encounter Plan of Treatment Upcoming Encounters Date Type Department Care Team (Late st Contact Info) Description 01/04/2026 10:00 AM EDT Nurse Only [facility] [address] [place] [address] Nik Hunt DO [address] [place] [address] 01/23/2026 9:00 AM EDT Office Visit [facility] Medicine [address] [place] [address] Fawad Hutton MD [address] [place] [address] 07/13/2026 8:30 AM EDT Office Visit [facility] [address] [place] [address] Nik Hunt DO [address] [place] [address] documented as of this encounter Visit Diagnoses Diagnosis Hypertension Unspecified essential hypertension documented in this encounter Additional Health Concerns Assessment Noted Time PHQ-2 Depression Total Score: 0 07/25/20 25 1:05 PM EDT documented as of this encounter Care Teams Mechanical Insulator Relationship Specialty Start Date End Date Fawad Hutton MD [address] [place] [address] PCP - General 07/14/17 Bernard Braga MD [address] [place] [address] [place] [address] Ophthalmology 11/26/19 Nik Hunt DO [address] [place] [id number] [email or web address] Endocrinology 11/26/19 documented as of this encounter Additional Source Comments The information contained in this document represents components of the legal health record. It is not the complete legal health record.[facility]
== END 2025-09-06 13:22 | disposition home or self-care (01) ==
LOC: HO.MAMMO 13:21
PROVIDERS: PCP Internal Medicine; Visit Provider Internal Medicine Endocrinology, Diabetes & Metabolism
DX: M81.0 Age-related osteoporosis without current pathological fracture (principal)
CPT/HCPCS: 77080

== ENCOUNTER → 2025-09-06 13:30 | Outpatient (BNV) | payer MEDICARE, SELFPAY | PROVIDERS: PCP Internal Medicine; Visit Provider Radiology Diagnostic Radiology | DX: E28.39 Other primary ovarian failure (principal) | CPT/HCPCS: 77080 ==